=== PATIENT | female | born 1955 | race Caucasian/White ===

== ENCOUNTER 2023-09-22 18:14 | Emergency (ER) | payer MEDICARE, OTHER, SELFPAY ==
[2023-09-22 18:17] VITALS: BP 175/108; BMI 28.4
--- NOTE | 2023-09-22 19:23 | ED.GENMED ---
History of Present Illness
General
Chief Complaint: Fall
Source: patient
Exam Limitations: none
Time Seen by Provider: 09/22/23 18:37
Travel History
Have you had any contact with someone who has COVID-19?: No
Do you have any symptoms of coronavirus? Fever > 100 degrees, chills, cough, shortness of breath, sore throat, loss of taste or smell, muscle aches, or headache?: No
History of Present Illness
History of Present Illness:
This is a 68 year old female that comes in with c/o fall. States that she watches her grandson and she got her foot caught in the edge of his walker. States that she fell face first hitting the left sided of her face and head. States that she has
discomfort under the left eye and a headache. Denies any LOC. Denies any fever, chills, chest pain, SOB, abd pain, nausea, vomiting, diarrhea, dizziness, urinary burning.
Past History
Past History
ED Past Medical History: None; Negative Asthma, HTN, Hypercholesterolemia or NIDDM
ED Past Surgical History: Appendectomy and Other (Hernia X 3)
Social History
Tobacco: Non-smoker
Alcohol: Occasional
Personal:
Living: with family
Family History
Family History: Negative Diabetes, Hypertension, Early CAD, Asthma or Cancer
Review of Systems
Review of Systems
All Other Systems: ROS reviewed and negative except as documented in HPI and ROS
Constitutional: Reports no symptoms; Denies fever
EENT: Reports no symptoms
Respiratory: Reports no symptoms; Denies cough or trouble breathing
Cardiac: Reports no symptoms; Denies chest pain
ABD/GI: Reports no symptoms; Denies abdominal pain, nausea, vomiting or diarrhea
: Reports no symptoms; Denies dysuria, frequency or urgency
Musculoskeletal: Reports other (left sided facial tenderness)
Skin: Reports no symptoms
Neurological: Reports headache; Denies dizzy
Psychiatric: Reports no symptoms
Phy Exam
General Physical Exam
General Presentation: well appearing and no apparent distress
General age: appears stated age
General Skin: warm and dry
General Habitus: normal
General Mental: alert
General Hydration: appears well hydrated
ENT Exam
ENT Exam: TM's normal, pharynx normal and neck supple
Eye Exam
Eye Exam: EOMI
Cardiovascular Exam
Cardiovascular Exam: regular rate/rhythm, no edema, no murmur and normal peripheral pulses
Pulmonary Exam
Pulmonary Exam: lungs clear, no respiratory distress, no rales, chest non tender, no crackles, no rhonchi, no wheezing and no cough
Musculoskeletal Exam
Musculoskeletal Exam: full ROM, no edema and other (Negative for any cervical neck tenderness or shoulder tenderness, Patient moving all extremities. Left cheek tender to palpation. )
Skin Exam
Skin Exam: normal color, warm/dry, no rash, no petechia and other (Slight redness noted left cheek,)
Psychiatric Exam
Psychiatric Exam: normal mood/affect
Course
Orders/Labs/Results
Orders:
Orders
09/22/23 18:59
CT Facial Bones W/o Iv Contras Urgent
Comment:
Reason For Exam: fall face foreward. Left sided facial pain
CT Head W/o Iv Contrast Urgent
Comment:
Reason For Exam: fall hitting head
Vital Signs
Initial and Last Documented VS:
Initial Vital Signs
Temp Pulse Resp BP Pulse Ox
98 F 84 16 175/108 98
09/22/23 18:17 09/22/23 18:17 09/22/23 18:17 09/22/23 18:17 09/22/23 18:17
Last Documented Vital Signs
Temp Pulse Resp BP Pulse Ox
98 F 84 16 175/108 98
09/22/23 18:17 09/22/23 18:17 09/22/23 18:17 09/22/23 18:17 09/22/23 18:17
MDM/Problems Addressed
Differential Diagnosis Includes:
accidental fall, Contusion.
MDM/Problems Addressed:
This is a 68 year old female that comes in with c/o fall. states that she tripped and fall onto a hard wood floor States that she hit the left sided of her face and head.
Will get CT of head and facial bones.
Back into see patient. Explained that her CT of the head is normal and that there are no facial bone fractures. Patient can use Tylenol for any discomfort. Ice to the face to help decrease the swelling. Follow up with the family doctor. Patient to
return with any concerns.
Chronic conditions affecting care:
NA
Acute Exacerbation and/or Progression of Chronic Illness:
NA
*Radiology
Radiology exam reviewed: radiology read reviewed (CT head- There is no acute intracranial process. Minimal ethmoid sinus disease. CT facial bones-Mild soft tissue swelling along the left side of the face. No findings to suggest an occult
fracture. Degenerative disk and joint disease in the visualized upper cervical spine. )
*Pulse Oximetry
Patient hypoxic: no
*EKG
Interpreted by ED Provider?: NA
Rate: EKG- N/A
*Paint Roller Cover Machine Setter Interpretation
Rate: Paint Roller Cover Machine Setter- N/A
*Critical Care Note
Total Time (30-74mins, 75-104mins- exclusive of procedures): Not Applicable
ED Attending Note
-
Portions of this chart may have been created with voice recognition software.� Occasional wrong word or��sound alike� substitutions may have occurred due to the inherent limitations of voice recognition software.
Discharge Plan
Departure
Patient Disposition: Home (Routine Discharge)
Date of Disposition: 09/22/23
Time of Disposition: 20:28
Patient with high blood pressure during this ER visit?: Yes
Condition: Good
Covid-19: Not Applicable
Discharge Problem:
Accidental fall
Instructions: Preventing falls in adults, BLOOD PRESSURE
Prescriptions:
No Action
omeprazole magnesium [Prilosec OTC] 20 MG tablet,delayed release (DR/EC)
20 mg PO DAILY
Referrals:
NONE,* [Active] -
Activity Restrictions/Additional Instructions:
As discussed, the CT of the head is negative for any acute process and the CT of the facial bones is negative for any fractures. There is degenerative changes in the cervical spine. You may use Tylenol 1000mg every 6 hours for any headache pain.
Ice to the left sided of the face to decrease any swelling. Follow up with the family doctor as needed. IF YOU HAVE VOMITING MORE THEN TWICE, HEADACHE NOT RELIEVED BY TYLENOL OR YOU HAVE ANY OTHER CONCERNS PLEASE RETURN TO THE EMERGENCY ROOM.
Interventions
Interventions:
*Risk Screen - Suicide Last Done: 09/22/23 18:17
*Neglect/Abuse Screening Last Done: 09/22/23 18:17
ED- Fall Risk Assessment Last Done: 09/22/23 20:08
*ED COVID-19 Vaccine History Last Done: 09/22/23 18:17
ED-Musculoskeletal Assessment Last Done: 09/22/23 20:08
ED- Neurological Assessment Last Done: 09/22/23 20:08
ED-Skin Assessment Last Done: 09/22/23 20:08
== END 2023-09-22 20:00 | disposition home or self-care (01) ==
LOC: EMR 18:14
PROVIDERS: EMERGENCY PHYSICIAN Emergency Medicine; FAMILY PHYSICIAN Family Medicine
DX: R22.0 Localized swelling, mass and lump, head (principal); R51.9 Headache, unspecified; W01.0XXA Fall on same level from slipping, tripping and stumbling without subsequent striking against object, initial encounter; R03.0 Elevated blood-pressure reading, without diagnosis of hypertension; M50.30 Other cervical disc degeneration, unspecified cervical region; M47.812 Spondylosis without myelopathy or radiculopathy, cervical region; Z88.0 Allergy status to penicillin
CPT/HCPCS: 99284; 70450; 70486

== ENCOUNTER 2023-11-12 08:06 | Emergency (ER) | payer MEDICARE, OTHER, SELFPAY ==
[2023-11-12 08:08] VITALS: BP 160/100
[2023-11-12] MEDS: MAALOX 50 PO (09:02)
--- NOTE | 2023-11-12 09:11 | ED.GENMED ---
History of Present Illness
General
Chief Complaint: Esophageal Problem
Time Seen by Provider: 11/12/23 08:34
Travel History
Have you had any contact with someone who has COVID-19?: No
Do you have any symptoms of coronavirus? Fever > 100 degrees, chills, cough, shortness of breath, sore throat, loss of taste or smell, muscle aches, or headache?: No
History of Present Illness
History of Present Illness:
60-year-old female presents the emergency department for evaluation of a suspicion for food stuck in her throat. She was eating pizza last night and developed after swallowing a piece of crust that food became stuck. She attempted to drink large
amounts of fluids including seltzer water which did not for the symptoms however she was able to swallow the liquids. She is able to swallow saliva without difficulty. Symptoms persist this morning however. No history of esophageal food
obstruction
Past History
Past History
ED Past Medical History: None; Negative Asthma, HTN, Hypercholesterolemia or NIDDM
ED Past Surgical History: Appendectomy and Other (Hernia X 3)
Social History
Tobacco: Non-smoker
Alcohol: Occasional
Personal:
Living: with family
Family History
Family History: Negative Diabetes, Hypertension, Early CAD, Asthma or Cancer
Review of Systems
Review of Systems
Allergies reviewed?: Yes
All Other Systems: ROS reviewed and negative except as documented in HPI and ROS
Phy Exam
Physical Exam
Physical Exam:
GEN: Well appearing, NAD, WDWN
HEENT: Oral mucosa moist, no scleral icterus
Cardiac: Regular rate
Lung: No respiratory distress, no tachypnea
MSK: No gross deformity or injuries
Skin: Good color, no pallor or jaundice, no rashes
Neuro: AO x3, moves all extremities freely
Psych: Calm, cooperative
Course
Orders/Labs/Results
Orders:
Orders
11/12/23 08:51
Mag Hydrox/Al Hydrox/Simeth [Maalox] 30 ml Phenobarb/Hyoscy/Atropine/Scop [] 10 ml Viscous Lidocaine 2% [Xylocaine Viscous Cup] 10 ml PO NOW
11/12/23 09:00
Mag Hydrox/Al Hydrox/Simeth [Maalox] 30 ml .ROUTE .STK-MED ONE
Phenobarb/Hyoscy/Atropine/Scop [] 10 ml .ROUTE .STK-MED ONE
11/12/23 09:01
Viscous Lidocaine 2% [Xylocaine Viscous Cup] 15 ml .ROUTE .STK-MED ONE
Vital Signs
Initial and Last Documented VS:
Initial Vital Signs
Temp Pulse Resp BP Pulse Ox
98.2 F 101 16 160/100 98
11/12/23 08:08 11/12/23 08:08 11/12/23 08:08 11/12/23 08:08 11/12/23 08:08
Last Documented Vital Signs
Temp Pulse Resp BP Pulse Ox
98.2 F 101 16 160/100 98
11/12/23 08:08 11/12/23 08:08 11/12/23 08:08 11/12/23 08:08 11/12/23 08:08
MDM/Problems Addressed
MDM/Problems Addressed:
No indication that this is any complete food obstruction. Likely esophageal injury/abrasion. Will treat supportively with Carafate, recommend outpatient GI follow-up if symptoms persist
*Critical Care Note
Total Time (30-74mins, 75-104mins- exclusive of procedures): Not Applicable
ED Attending Note
-
Portions of this chart may have been created with voice recognition software.� Occasional wrong word or��sound alike� substitutions may have occurred due to the inherent limitations of voice recognition software.
Discharge Plan
Departure
Patient Disposition: Home (Routine Discharge)
Date of Disposition: 11/12/23
Time of Disposition: 10:06
Patient with high blood pressure during this ER visit?: No
Discharge Problem:
Abrasion of esophagus
Instructions: Acid Reflux and GERD in Adults (DC)
Prescriptions:
New
sucralfate [Carafate] 1 gram tablet
1 g PO AC Qty: 30 0RF
Rx Instructions:
Dissolve in 10mL clear liquid prior to consumption
No Action
omeprazole magnesium [Prilosec OTC] 20 MG tablet,delayed release (DR/EC)
20 mg PO DAILY
Referrals:
Gracie Kimble MD [Active] -
Amy Juares DO [Family Provider] -
Interventions
Interventions:
*Risk Screen - Suicide Last Done: 11/12/23 08:08
*General Assessment Last Done: 11/12/23 08:08
*Neglect/Abuse Screening Last Done: 11/12/23 08:08
ED- Fall Risk Assessment Last Done: 11/12/23 10:07
*ED COVID-19 Vaccine History Last Done: 11/12/23 09:05
*Nursing Disposition Last Done: 11/12/23 10:07
QO-Scqgdy-Aurbxohrzq Assessment Last Done: 11/12/23 09:05
ED-EENT Assessment Last Done: 11/12/23 09:05
Discharge Date and Time
Print Language: UKRAINIAN
== END 2023-11-12 10:07 | disposition home or self-care (01) ==
LOC: EMR 08:06
PROVIDERS: EMERGENCY PHYSICIAN Emergency Medicine; FAMILY PHYSICIAN Family Medicine
DX: S27.818A Other injury of esophagus (thoracic part), initial encounter (principal); W45.8XXA Other foreign body or object entering through skin, initial encounter
CPT/HCPCS: 99283

== ENCOUNTER → 2024-01-13 08:34 | Outpatient (REF) | payer MEDICARE, OTHER, SELFPAY | LOC: RST 08:34 | PROVIDERS: ATTENDING PHYSICIAN Family Medicine | DX: R13.19 Other dysphagia (principal) | CPT/HCPCS: 74230; 92611 ==